=== PATIENT | male | born 1960 | race Caucasian/White ===

== ENCOUNTER 2024-12-31 13:28 | Emergency (ER) | payer OTHER, SELFPAY ==
[2024-12-31 13:43] VITALS: BP 161/76; PULSE 77; RESP 18; O2SAT 97
--- NOTE | 2024-12-31 14:04 | ED_ITS ---
HPI - Head Injury General: Chief complaint: Head Injury Stated complaint: fell out of truck bed, head lac Time Seen by Provider: 12/31/24 14:04 Source: patient Mode of arrival: ambulatory Limitations: no limitations History of Present Illness: Patient is a very pleasant 64-year-old male presents to ED today after he fell out of the back of a truck bed. Patient states he fell backwards and struck the posterior aspect of his scalp. No LOC. He is not on anticoagulation. He does not complain of a severe headache. He is not having any neck pain. He does complain of some pain near the left side of his low back that he feels more so with ambulation. He is not complaining of any chest or abdominal pain. He has been ambulatory without difficulty or assistance since the fall. MD Complaint: head injury Onset (ago): hour(s) Mechanism of Injury: fall Place: outdoors Loss of Consciousness: no Severity: mild Radiation: none Other Injuries: none Associated symptoms: Deny neck pain or syncope Related Data Previous Rx's ?Medication ?Instructions ?Recorded methocarbamol 750 mg tablet 750 mg PO Q6H #20 tabs Allergies Allergy/AdvReac Type Severity Reaction Status Date / Time No Known Allergies Allergy Verified 12/31/24 13:48 Review of Systems Eyes: Denies: change in vision, blurry vision, photophobia, eye discharge, floaters or seeing flashes ENMT: Denies: throat pain, odynophagia, ear or mastoid pain, ear discharge, nasal discharge, epistaxis or sinus pain Card: Denies: chest pain, palpitations, lightheadedness, syncope or pre- syncope Resp: Denies: dyspnea or pain on inspiration GI: Denies: abdominal pain : Denies: flank pain or hematuria Musc: Reports: back pain; Denies: neck pain, extremity pain or joint pain Skin/Breast: Reports: other (scalp laceration) Neuro: Denies: headache(s), numbness in extremities, weakness in extremities, sensory changes or dizziness Physical Exam Const: COMMON NORMALS: no acute distress, average body habitus, patient oriented x3, no limitations, healthy appearing, alert and well nourished GENERAL APPEARANCE: cooperative ORIENTATION/CONSCIOUSNESS: Yes awake, Yes oriented to person, Yes oriented to place and Yes oriented to time HENMT: COMMON NORMALS: normocephalic HEAD & SCALP: normocephalic and laceration (posterior scalp-1cm) FACE & SINUS: normal facial exam Eye: GENERAL EYE: appearance normal, both eyes and all related structures Neck/C-Spine: COMMON NORMALS: full ROM CERVICAL SPINE: Yes cervical ROM normal, No Cervical spine tenderness and No Paracervical muscle tenderness Chest: COMMONS NORMALS: normal inspection of the chest and normal palpation of entire chest wall Resp: COMMON NORMALS: normal respiratory effort and clear to auscultation bilaterally AUSCULTATION: clear to auscultation bilaterally Cardio: COMMON NORMALS: regular rate and regular rhythm RATE: regular rate RHYTHM: regular rhythm Back/Pelvis: COMMON NORMALS: thoracic and lumbar spine normal to inspection, thoraco-lumbar ROM normal and straight leg raise negative bilaterally LUMBAR SPINE/LOWER BACK: Yes lumbar spinal tenderness (mid lumbar) and Yes paraspinal muscle tenderness Lumbar paraspinal muscle tenderness: left PELVIS: Yes but tocks normal SACRUM: no tenderness COCCYX: no tenderness Extremity: COMMON NORMALS: normal to inspection and full ROM Neuro: BEBETO COMA SCALE: document GCS findings [place] coma scale eye opening: Spontaneous [place] coma scale verbal response: Orientated [place] coma scale motor response: Obey commands [place] coma scale total score: 15 COMMON NORMALS: patient oriented x3, moves all extremities, no focal motor deficits, no sensory deficits noted and gait normal SENSORIUM/ORIENTATION: Yes alert, Yes oriented to person, Yes oriented to place and Yes oriented to time Skin: TRAUMA: laceration (scalp) Procedures Laceration Laceration 1: Site: scalp Size (cm): 1.0 Description: linear Depth: simple, single layer Pre-repair: wound explored and irrigated extensively Skin layer closed with: vicryl (2) and other (cynthia-2) Size (cm): 4-0 Number of sutures: 2 Technique: simple, interrupted Course Vital Signs: Vital signs: Vital Signs Pulse Rate 77 12/31/24 13:43 Respiratory Rate 18 12/31/24 13:43 Blood Pressure 161/76 12/31/24 13:43 Pulse Oximetry 97 12/31/24 13:43 Oxygen Delivery Me thod Room Air 12/31/24 13:43 MDM - Head Injury Medcial Decision Making Patient is declining imaging of his head, neck, or lower back. He is concerned regarding his high deductible on his insurance plan. Did discuss risks involved in foregoing imaging of his head, neck and spine including missing an intracranial hemorrhage, skull fracture, vertebral fracture or injury that could result in permanent neurologic damage. Patient seems to understand these risks. He is requesting a prescription for a muscle relaxer which will be provided. He was given signs and symptoms that should prompt a return emergency visit to which he voiced understanding. Scalp laceration was copiously irrigated and repaired as documented. Wound care/infection precautions discussed. Differential Diagnosis Likely concussion without loss of consciousness, epidural hematoma, closed head injury, subarachnoid hematoma and subdural hematoma Medical Records I reviewed the patient's medical records. No radiology studies performed this visit (pt declined imaging) Discharge Plan Discharge Patient Disposition: Home Clinical Impression: Closed head injury Qualifiers: Encounter type: initial encounter Qualified Code(s): S09.90XA - Unspecified injury of head, initial encounter Injury of lower back Qualifiers: Encounter type: initial encounter Qualified Code(s): S39.92XA - Unspecified injury of lower back, initial encounter Laceration of scalp Qualifiers: Encounter type: initial encounter Qualified Code(s): S01.01XA - Laceration without foreign body of scalp, initial encounter Condition: Stable Prescriptions: New methocarbamol 750 mg tablet 750 mg PO Q6H Qty: 20 0RF Discharge Orders: Discharge ED (Routine); Ordered 12/31/24 Ordered By: Janeth Viera Referrals: Lorenzo Austin MD [Primary Care Provider, [facility]] Patient Instructions: Head Injury (DC), Patient Portal & Nancy Instructions Activity Restrictions/Additional Instructions: As we discussed, you have declined any form of imaging today including imaging of your head, neck, and lower back. We have discussed risks of this including intracranial hemorrhage (brain bleed) and/or skull fracture which could be life threatening. We discussed other risks including cervical injury or significant injury to your back that could cause paralysis or long-term neurologic damage. You have indicated that you accept these risks. We did discuss following up with your primary care provider and returning to the emergency department for onset of severe headache, repetitive episodes of vomiting, altered mental status, worsening back or neck pain, numbness/tingling/loss of sensation to your arms or legs, trouble walking, or any other concerns related. Print Language: Belarusian Coding Level of Care Code ED Net Mobile Developer for [employer]
--- OUTSIDE RECORDS SUMMARY | 2024-12-31 14:22 | XMS_ITS | Encounter Summary ---
Author Organization [facility] Address [address] [place] [address] Care Team Providers Care Slip Box Changer Name Role Phone Lorenzo Austin MD Primary Care Provider [phone] Encounter Details Date Type Department Care Team (Late Contact Info) Description 04/09/2024 Results Follow-Up [facility] [address] [place] [id number] Lorenzo Austin MD [address] [place] [address] PSA, ENDOSCOPY, COLON, SCREENING Social History Tobacco Use Types Packs/Day Years Used Date Smoking Tobacco: Never Smokeless Tobacco: Never Alcohol Use Standard Drinks/Week Comments No 0 (1 standard drink = 0.6 oz pur e alcohol) Sex and Gender Information Value Date Recorded Sex Assigned at Male 01/02/2023 6:22 PM CDT Legal Sex Male 3:50 PM SECOND OFFICER Gender Identity Male 01/02/2023 6:22 PM CDT Sexual Orientation Not on file documented as of this encounter Plan of Treatment Upcoming Encounters Date Type Department Care Team (Late st Contact Info) Description 01/13/2025 10:30 AM CDT Office Visit [facility] [address] [place] [address] Lorenzo Austin MD [address] [place] [address] 03/03/2025 9:20 AM SECOND OFFICER Office Visit [facility] [place] [address] [place] [address] Halie William PA [address] [place] [address] documented as of this encounter Visit Diagnoses Not on filedocumented in this encounter Care Teams Slip Box Changer Relationship Specialty Start Date End Date Lorenzo Austin MD [address] [place] [id number] PCP - General Family Practice 06/12/20 documented as of this encounter
--- OUTSIDE RECORDS SUMMARY | 2024-12-31 14:22 | XMS_ITS | Encounter Summary ---
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 Social History Tobacco Use Types Packs/Day Years Used Date Smoking Tobacco: Never Assessed Sex and Gender Information Value Date Recorded Sex Assigned at Not on file 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 Gender Identity Not on file Sexual Orientation Not on file documented as of this encounter Plan of Treatment Not on file documented as of this encounter Visit Diagnoses Diagnosis Type II or unspecified type diabetes mellitus without mention of complication, not stated as uncontrolled- Primary Dietary surveil/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
--- OUTSIDE RECORDS SUMMARY | 2024-12-31 14:22 | XMS_ITS | Clinical Summary ---
Author Organization [facility] Address [address] [place] [address] Care Team Providers Care Geochemical Laboratory Technician Name Role Phone Lorenzo Austin MD Primary Care Provider [phone] Allergies No known active allergies Medications sildenafiL (VIAGRA) 100 mg tablet Take 1 Tablet (100 mg) by mouth 1 time daily as needed for Erectile Dysfunction. 30 Tablet 5 Active Additional Information Patient not taking.Reported on 11/03/2024 aspirin (TAMIKO CHEWABLE) 81 mg Tablet, Chewable Active timoloL maleate (TIMOPTIC) 0.5% solution Administer 1 Drop in left eye daily in the morning. 5 mL 3 Active tadalafiL (CIALIS) 20 mg tablet Take 1 Tablet (20 mg) by mouth 1 time daily as needed for Erectile Dysfunction. 30 Tablet 5 Active glipiZIDE (GLUCOTROL) 10 mg tablet take 1 tablet twice a day 180 Tablet 3 024 Active lisinopriL (PRINIVIL) 10 mg tablet TAKE 1 TABLET DAILY 90 Tablet 3 024 Active verapamiL (VERELAN) 180 mg Sustained Release 24 hour capsule TAKE 1 CAPSULE DAILY 90 Capsule 3 Active methylPREDNISol one (MEDROL DOSPACK) 4 mg Tablets, Dose Pack As directed 21 Tablet Active Additional Information Patient not taking.Reported on 11/03/2024 erythromycin (ILOTYCIN) 5 mg/gram (0.5 %) ointment Administer 0.25 Inches in both eyes daily at bedtime. 10 Gram 1 Active Additional Information Patient not taking.Reported on 11/03/2024 HYDROcodone-talia taminophen (NORCO) 5-325 mg tabletIndicatio ns:Sciatica of right side Take 1 Tablet by mouth every 6 hours as needed for Pain, Moderate. Max Daily Amount: 4 Tablets 20 Tablet Active Additional Information Patient not taking.Reported on 11/03/2024 tiZANidine (ZANAFLEX) 2 mg Tablet Take 1 Tablet (2 mg) by mouth every 6 hours as needed for Spasm. 20 Tablet 1 Active Additional Information Patient not taking.Reported on 11/03/2024 traZODone (DESYREL) 100 mg tablet TAKE 1 TABLET DAILY AT BEDTIME 90 Tablet 3 Active Insulin Goff, Disposable, (BD Ultra-Fine Mini Pen Needle) 31 gauge x 3/16 Needle Inject insulin once a day 100 Each 3 Active atorvastatin (LIPITOR) 10 mg tablet TAKE 1 TABLET DAILY 90 Tablet 3 Active semaglutide (Ozempic) 0.25 mg or 0.5 mg (2 mg/3 mL) Pen Injector Inject 0.5 mg by subcutaneous injection every 7 days. 9 mL 3 Active Additional Information Patient not taking.Reported on 11/03/2024 HYDROcodone-talia taminophen (NORCO) 5-325 mg tabletIndicatio ns:Herpes zoster without complication Take 1 Tablet by mouth every 4 hours as needed for Pain, Moderate. Max Daily Amount: 6 Tablets 20 Tablet Active empagliflozin (Jardiance) 25 mg tablet Take 1 Tablet (25 mg) by mouth daily in the morning. 90 Tablet 3 Active gabapentin (NEURONTIN) 300 mg capsule Take 1 Capsule (300 mg) by mouth 3 times daily. 90 Capsule 1 Active Lantus Solostar U-100 Insulin 100 unit/mL (3 mL) solution for injection INJECT 30 UNITS SUBCUTANEOUSLY ONCE DAILY AT BEDTIME 15 mL Active insulin glargine (Lantus Solostar U-100 Insulin) 100 unit/mL pen syringe Inject 50 Units by subcutaneous injection daily at bedtime. 15 mL 3 025 2024 Discontinued Active Problems Problem Noted Date Diagnosed Date Back pain with sciatica 03/29/2024 Obesity (BMI 30.0-34.9) 01/06/2023 Chronic left shoulder pain 01/06/2023 Hyperlipidemia 01/06/2023 HTN (hypertension), benign 01/06/2023 DM (diabetes mellitus), type 2 02/23/2021 Vision impairment 06/12/2020 Overview (07/17/2020): Right side Primary open angle glaucoma of right eye, mild s tage 04/03/2015 Glaucoma shunt device of right eye 04/03/2015 Borderline glaucoma with ocular hypertension, le ft eye 02/19/2013 Senile nuclear sclerosis, left eye 02/19/2013 Cystoid macular edema - right eye 01/08/2013 Pseudophakia of right eye 12/24/2012 Resolved Problems Problem Noted Date Diagnosed Date Resolved Date Primary open-angle glaucoma( 365.11), right eye 02/19/2013 04/03/2015 Primary open-angle glaucoma(365.11) 12/24/2012 02/19/2013 Encounters Date Type Department Care Team Description 12/03/2024 External Device Data STL ABSTRACTION Provider, Abstract 12/03/2024 External Device Data STL ABSTRACTION Provider, Abstract 11/30/2024 Refill [facility] Endocrinology [facility] [address] [place] [address] Paul Bentley MD 11/26/2024 External Device Data STL ABSTRACTION Provider, Abstract 11/22/[address] [facility] [address] [place] [address] Paul Bentley MD Medication Assistance 11/20/[address] [facility] [address] [place] [address] Bill Cuenca CMA 11/06/2024 External Device Data STL ABSTRACTION Provider, Abstract 11/03/2024 10:00 AM CDT Office Visit [facility] [phone] [facility] [address] [place] [address] Hany Kan FNP Herpes zoster without complication (Primary Dx) 10/21/[address] [facility] [address] [facility] [address] [place] [address] Paul Bentley MD Medication Authorization 10/14/2024 10:30 AM CDT Office Visit [place] [id number] [facility] [address] [place] [address] Paul Bentley MD Uncontrolled type 2 diabetes mellitus with hyperglycemia, without long-term current use of insulin ([facility]) (Primary Dx); Dyslipidemia; Class 1 obesity with body mass index (BMI) of 32.0 to 32.9 in adult, unspecified obesity type, unspecified whether serious comorbidity present; Diabetic polyneuropathy associated with type 2 diabetes mellitus ([facility]) 10/03/2024 Results Follow-Up [place] [id number] [facility] [address] [place] [address] Paul Bentley MD COMPREHENSIVE METABOLIC PANEL, HEMOGLOBIN A1C, LIPID PANEL 10/02/2024 External Device Data STL ABSTRACTION Provider, Abstract 10/02/2024 External Device Data STL ABSTRACTION Provider, Abstract 10/02/2024 External Device Data STL ABSTRACTION Provider, Abstract from Last 3 Months Immunizations Immunization Administration Dates Next Due (PNEUMOVAX 23)(50 YRS UP) PN EUMOCOCCAL POLYSACCHARIDE (PPV23) 0.5 ML, IM 12/14/2020 (TDVAX)(7 YRS UP) TETANUS AN D DIPHTHERIA TOXOIDS, ADSORBED (2 LF OF TETANUS TOXOID AND 2 LF OF DIPHTHERIA TOXOID), 0.5ML (PF), IM 02/04/2000 (TENIVAC)(7 YRS UP) TETANUS AND DIPHTHERIA TOXOIDS, ADSORBED (5 LF OF TETANUS TOXOID AND 2 LF OF DIPHTHERIA TOXOID), 0.5ML (PF), IM 01/05/2022 INFLUENZA VACCINE QUADRIVALENT 6 MOS UP PF IM ,01/05/2022 INFLUENZA VACCINE TRIVALENT SPLIT VIRUS, (6 MOS UP), 0.5ML (PF), IM 01/12/2024 Family History Medical History Relation Name Comments Diabetes Brother Diabetes Father Diabetes Maternal Grandfather Hypertension Maternal Grandfather Diabetes Paternal Grandmother Cancer Sister Colon Cancer Neg Hx Glaucoma Neg Hx Macular Degen Neg Hx Relation Name Status Comments Brother Father Maternal Grandfather Paternal Grandmother Sister Social History Tobacco Use Types Packs/Day Years Used Date Smoking Tobacco: Never Smokeless Tobacco: Never Tobacco Cessation:Counseling Given: Not Answered Alcohol Use Standard Drinks/Week Comments No 0 (1 standard drink = 0.6 oz pur e alcohol) Sex and Gender Information Value Date Recorded Sex Assigned at Male 01/02/2023 6:22 PM CDT Legal Sex Male 3:50 PM STUDIO MODEL Gender Identity Male 01/02/2023 6:22 PM CDT Sexual Orientation Not on file Last Filed Vital Signs Vital Sign Reading Time Taken Comments Blood Pressure 118/78 11/03/2024 10:03 AM CDT Pulse 74 11/03/2024 10:03 AM CDT Temperature 36.8 C (98.3 F) 11/03/2024 10:03 AM CDT Respiratory Rate 16 03/29/2024 9:55 AM STUDIO MODEL Oxygen Saturation 94% 11/03/2024 10:03 AM CDT Inhaled Oxygen Concentration - - Weight 106.4 kg (234 lb 8 oz) 11/03/2024 10:03 A M CDT Height 177.8 cm (5' 10 ) 10/14/2024 10:15 AM CDT Body Mass Index 33.65 10/14/2024 10:15 AM CDT Plan of Treatment Upcoming Encounters Date Type Department Care Team (Late st Contact Info) Description 01/13/2025 10:30 AM CDT Office Visit [facility] [phone] [place] [address] Lorenzo Austin MD [address] [place] [address] 03/03/2025 9:20 AM STUDIO MODEL Office Visit [facility] Endocrinology [facility] [address] [place] [address] Halie William PA [address] [place] [address] Health Maintenance Due Date Last Done Comments FIT/FOBT Q 1 year 2006 Flex Sig/CT Colonography Q 5 years 2006 ZOSTER VACCINE (1 of 2) 2011 RSV VACCINE (60+ or ) (1 - Risk 60-74 years 1-dose series) 2021 DTAP/TDAP/TD VACCINES (1 - Tdap) 01/06/2022 01/06/20 22, 02/04/2000 DIABETES MICROALBUMIN ANNUAL SCREEN 07/30/2023 07/29/2022, 01/28/2022, 01/28/2021, Additional history exists FIT-DNA Q 3 years 12/30/2023 12/29/2020 INFLUENZA VACCINE (#1) 2024 4, 01/06/2023, 01/05/2022 DIABETES: A1C (Auto Order) 01/02/202510/02, 04/08/2024, 10/30/2023, Additional history exists DIABETES ANNUAL FOOT EXAM 01/11/20252023, 01/06/2023, 01/05/2022, Additional history exists DIABETES ANNUAL RETINAL EXAM 03/29/202512/2024, 03/29/2024, 08/04/2023, Additional history exists DIABETES HBA1C Q 6 MONTHS 04/04/20252024, 04/08/2024, 10/30/2023, Additional history exists LDL CHOLESTEROL ANNUAL 10/02/2025 5, 04/08/2024, 07/31/2023, Additional history exists COLORECTAL SCREENING 05/13/2034 05/13/2024 Colorectal Cancer Screening 05/13/2034 Medical Devices Implanted Type Area Tub Rider Device Identifier Shelf Expiration Date Model / Serial / Lot Cornea Allgrft 1/2 Glycerin Prsrv 932 - [id number] Implanted:Qty: 1 on 02/11/2013 by Al Lacey MD Eye Right: Eye [place] [employer] 12/08/2016 932 / [id number] / Valve Maint Ahmed Glaucoma S-2 - [id number] Implanted:Qty: 1 on 02/11/2013 by Al Lacey MD Eye Right: Eye [id number] 11/11/2017 S-2 / [id number] / Procedures Procedure Name Priority Date/Time Associated Diagnosis Comments LIPID PANEL Routine 10/02/2024 9:12 AM CDT Uncontrolled type 2 diabetes mellitus with hyperglycemia, without long-term current use of insulin (CMS/HCC) Dyslipidemia Class 1 obesity with body mass index (BMI) of 32.0 to 32.9 in adult, unspecified obesity type, unspecified whether serious comorbidity present Diabetic polyneuropathy associated with type 2 diabetes mellitus (CMS/HCC) HEMOGLOBIN A1C Routine 10/02/2024 9:12 AM CDT Uncontrolled type 2 diabetes mellitus with hyperglycemia, without long-term current use of insulin (CMS/HCC) Dyslipidemia Class 1 obesity with body mass index (BMI) of 32.0 to 32.9 in adult, unspecified obesity type, unspecified whether serious comorbidity present Diabetic polyneuropathy associated with type 2 diabetes mellitus (CMS/HCC) COMPREHENSIVE METABOLIC PANEL Routine 10/02/2024 9:12 AM CDT Uncontrolled type 2 diabetes mellitus with hyperglycemia, without long-term current use of insulin (CMS/HCC) Dyslipidemia Class 1 obesity with body mass index (BMI) of 32.0 to 32.9 in adult, unspecified obesity type, unspecified whether serious comorbidity present Diabetic polyneuropathy associated with type 2 diabetes mellitus (CMS/HCC) ENDOSCOPY, COLON, SCREENING Routine 05/13/2024 Encounter for colorectal cancer screening MICROALBUMIN/CREATINI NE RATIO, RANDOM UR Routine 07/29/2022 10:08 AM CDT Uncontrolled type 2 diabetes mellitus with hyperglycemia, without long-term current use of insulin (CMS/HCC) Dyslipidemia COLON CANCER SCREEN, STOOL DNA Routine 12/29/2020 11:30 AM CDT Screening for colon cancer FLUORESCEIN ANGIOGRAPHY RIGHT Routine 02/06/2013 12:10 PM STUDIO MODEL from Last 3 Months or Most Recently Relevant to Health Maintenance Results * (ABNORMAL) HEMOGLOBIN A1C (10/02/2024 9:12 AM CDT) HEMOGLOBIN A1C 9.9(H) <5.7 % [facility] Comment: For someone without known diabetes, a hemoglobin A1c value of 6.5% or greater indicates that they may have diabetes and this should be confirmed with a follow-up test. For someone with known diabetes, a value <7% indicates that their diabetes is well controlled and a value greater than or equal to 7% indicates suboptimal control. A1c targets should be individualized based on duration of diabetes, age, comorbid conditions, and other considerations. Currently, no consensus exists regarding use of hemoglobin A1c for diagnosis of diabetes for children. ESTIMATED AVERAGE GLUCOSE (MG/DL) 237 mg/dL [facility] ESTIMATED AVERAGE GLUCOSE (MMOL/L) 13.2 mmol/L [facility] Comment: FASTING:YES FASTING: YES Test Performed at: [facility] [address] [facility] [place] [address] Johanna Vogt MD Blood 10/02/2024 9:12 AM CDT 10/02/2024 9:12 AM CDT us Paul Bentley MD CHEMISTRY ORDERABLES Final Res ult [facility] [phone] [facility] [address] [place] [address] [place] [address] * LIPID PANEL (10/02/2024 9:12 AM CDT) CHOLESTEROL 152 <200 mg/dL [facility] HDL 41 > OR = 40 mg/dL [facility] TRIGLYCERIDE 126 <150 mg/dL [facility] LDL CALCULATED 88 mg/dL (calc) [facility] Comment: Reference range: <100 Desirable range <100 mg/dL for primary prevention; <70 mg/dL for patients with CHD or diabetic patients with > or = 2 CHD risk factors. LDL-C is now calculated using the Zane-Karen calculation, which is a validated novel method providing better accuracy than the Friedewald equation in the estimation of LDL-C. Zane SS et al. PIERO. 2013;310(19): 9073-0340 (http://education.[facility].com/faq/UJF680) CHOL/HDL RATIO 3.7 <5.0 (calc) [facility] NON-HDL CHOLESTEROL 111 <130 mg/dL (calc) [facility] Comment: For patients with diabetes plus 1 major ASCVD risk factor, treating to a non-HDL-C goal of <100 mg/dL (LDL-C of <70 mg/dL) is considered a therapeutic option. Test Performed at: [facility] [address] [place] [phone] Johanna Vogt MD Blood 10/02/2024 9:12 AM CDT 10/02/2024 9:12 AM CDT Paul Bentley MD CHEMISTRY ORDERABLES Final Res ult [facility] [phone] [facility] [address] * (ABNORMAL) COMPREHENSIVE METABOLIC PANEL (10/02/2024 9:12 AM CDT) GLUCOSE 228(H) 65 - 99 mg/dL [facility] Comment: Fasting reference interval For someone without known diabetes, a glucose value >125 mg/dL indicates that they may have diabetes and this should be confirmed with a follow-up test. BUN 18 7 - 25 mg/dL [facility] CREATININE 1.03 0.70 - 1.35 mg/dL [facility] GFR 82 > OR = 60 mL/min/1. 73m2 [facility] BUN/CREAT RATIO SEE NOTE: 6 - 22 (calc) [facility] Comment: Not Reported: BUN and Creatinine are within reference range. SODIUM 134(L) 135 - 146 mmol/L [facility] POTASSIUM 4.5 3.5 - 5.3 mmol/L [facility] CHLORIDE 102 98 - 110 mmol/L [facility] CO2 26 20 - 32 mmol/L [facility] CALCIUM 9.6 8.6 - 10.3 mg/dL [facility] TOTAL PROTEIN 7.1 6.1 - 8.1 g/dL [facility] ALBUMIN 4.3 3.6 - 5.1 g/dL [facility] GLOBULIN 2.8 1.9 - 3.7 g/dL (calc) [facility] ALBUMIN/GLOBULIN RATIO 1.5 1.0 - 2.5 (calc) [facility] BILIRUBIN TOTAL 0.5 0.2 - 1.2 mg/dL [facility] ALKALINE PHOSPHATASE 38 35 - 144 U/L [facility] AST 13 10 - 35 U/L [facility] ALT 14 9 - 46 U/L [facility] Comment: Test Performed at: [facility] [address] [place] [address] Johanna Vogt MD Blood 10/02/2024 9:12 AM CDT 10/02/2024 9:12 AM CDT us Paul Bentley MD CHEMISTRY ORDERABLES Final Res ult [facility] [phone] [facility] [address] * ENDOSCOPY, COLON, SCREENING (05/13/2024) us Lorenzo Austin MD GI PROCEDURE ORDERABLES Final Re sult * (ABNORMAL) MICROALBUMIN/CREATININE RATIO, RANDOM UR (07/29/2022 10:08 AM CDT) Creatinine, Urine 115 20 - 320 mg/dL [facility] MICROALBUMIN, URINE 4.9 See Note: mg/dL [facility] Comment: Reference Range: Reference Range Not established MICROALBUMIN/CREAT RATIO, UR 43(H) <30 mcg/mg creat [facility] Comment: The ADA defines abnormalities in albumin excretion as follows: Albuminuria Category Result (mcg/mg creatinine) Normal to Mildly increased <30 Moderately increased 30-299 Severely increased > OR = 300 The ADA recommends that at least two of three specimens collected within a 3-6 month period be abnormal before considering a patient to be within a diagnostic category. FASTING:YES FASTING: YES Test Performed at: [facility] [address] [place] [address] Johanna Vogt MD Urine URINE SPECIMEN OBTAINED BY CLEAN CATCH PROCEDURE / Unknown 07/29/2022 10:08 AM CDT 07/29/2022 10:09 AM CDT Paul Bentley MD URINE ORDERABLES Final Result [facility] [phone] [facility] [address] [facility] [place] [address] * COLON CANCER SCREEN, STOOL DNA (12/29/2020 11:30 AM CDT) COLOGUARD RESULT Negative Negative [facility] Comment: NEGATIVE TEST RESULT. A negative Cologuard result indicates a low likelihood that a colorectal cancer (CRC) or advanced adenoma (adenomatous polyps with more advanced pre-malignant features) is present. The chance that a person with a negative Cologuard test has a colorectal cancer is less than 1 in 1500 (negative predictive value >99.9%) or has an advanced adenoma is less than 5.3% (negative predictive value 94.7%). These data are based on a prospective cross-sectional study of 10,000 individuals at average risk for colorectal cancer who were screened with both Cologuard and colonoscopy. (Major Acosta et al, N Engl J Med 2014;370(14):1051-9005) The normal value (reference range) for this assay is negative. COLOGUARD RE-SCREENING RECOMMENDATION: Periodic colorectal cancer screening is an important part of preventive healthcare for asymptomatic individuals at average risk for colorectal cancer. Following a negative Cologuard result, the [place] [employer] and U.S. Multi-Society Task Force screening guidelines recommend a Cologuard re-screening interval of 3 years. References: [place] [employer] Guideline for Colorectal Cancer Screening: https://www.cancer.org/cancer/zoxhy-xyarcs-qdqhvt/alxkjohso-knhbmozrs-oiseicp/ac s-rec ommendations.html.; Anatoliy DK, Martin CR, Jenna AllenK, Colorectal Cancer Screening: Recommendations for Physicians and Patients from the U.S. Multi-Society Task Force on Colorectal Cancer Screening , Am J Gastroenterology 2017; 112:1075-6051. TEST DESCRIPTION: Composite algorithmic analysis of stool DNA-biomarkers with hemoglobin immunoassay. Quantitative values of individual biomarkers are not reportable and are not associated with individual biomarker result reference ranges. Cologuard is intended for colorectal cancer screening of adults of either sex, 45 years or older, who are at average-risk for colorectal cancer (CRC). Cologuard has been approved for use by the U.S. FDA. The performance of Cologuard was established in a cross sectional study of average-risk adults aged 50-84. Cologuard performance in patients ages 45 to 49 years was estimated by sub-group analysis of near-age groups. Colonoscopies performed for a positive result may find as the most clinically significant lesion: colorectal cancer [4.0%], advanced adenoma (including sessile serrated polyps greater than or equal to 1cm diameter) [20%] or non- advanced adenoma [31%]; or no colorectal neoplasia [45%]. These estimates are derived from a prospective cross-sectional screening study of 10,000 individuals at average risk for colorectal cancer who were screened with both Cologuard and colonoscopy. (Major Altamirano al, N Engl J Med 2014;370(14):1758-1627.) Cologuard may produce a false negative or false positive result (no colorectal cancer or precancerous polyp present at colonoscopy follow up). A negative Cologuard test result does not guarantee the absence of CRC or advanced adenoma (pre-cancer). The current Cologuard screening interval is every 3 years. ([place] [employer] and U.S. Multi-Society Task Force). Cologuard performance data in a 10,000 patient pivotal study using colonoscopy as the reference method can be accessed at the following location: www.[employer].Earthmill/results. Additional description of the Cologuard test process, warnings and precautions can be found at www.[facility].com. Stool STOOL SPECIMEN / Unknown 12/29/2020 11:30 AM CDT 12/30/2020 10:08 PM CDT Lorenzo Austin MD BODY FLUIDS AND STOOLS Final Res ult [facility] CLIA # [id number] [address], [address] [place] [address] * FLUORESCEIN ANGIOGRAPHY RIGHT (02/06/2013 12:10 PM STUDIO MODEL) 02/06/2013 12:1 0 PM STUDIO MODEL Narrative [facility] - 02/06/2013 9:09 AM STUDIO MODEL Eric Alexandra MD 02/06/2013 12:10 PM Fundus Photo Indication for procedure: To evaluate and document fundus findings. Findings: Findings consistent with clinical findings, both eyes. Impression: Right eye: cystoid macular edema Fluorescein Angiogram Report Indication for the procedure: To evaluate ocular circulation, aid with diagnosis and management plans. Findings: Early phase was obtained in the right eye. It showed normal arterial filling time. The A-V transient time is normal. It showed minimal early hyperfluorescence with mild defused late leakage in the macular area, right eye. No apparent sign of active subretinal neovascular membrane. Optic disc in the right eye showed minimal leakage in the late phase than the left. Diagnosis: cystoid macular edema, right eye Optical Coherent Topography Report Indication: To evaluate macular degeneration. Right Eye: There is choroidal folds with a few small plaque with RPE / choroid layer irregularity and thickening. There is no macular edema. Small pigmentary epithelial detachment, versus subretinal fluid. Left Eye: macular degeneration. There is a plaque with RPE / choroid layer irregularity and thickening. There is no macular edema or subretinal fluid. Diagnosis: Age related macular degeneration, both eyes Procedure Note Eric Alexandra MD - 02/06/2013 9:09 AM CST Procedures by Eric Alexandra MD at 02/06/2013 9:09 AM Author: Eric Alexandra MD Service: -- Author Type: Physician Filed: 02/06/2013 12:10 PM Encounter Date: 02/06/2013 Status: Signed Instrument Lens Generator: Eric Alexandra MD (Physician) Procedure Orders 1. FLUORESCEIN ANGIOGRAPHY RIGHT [[id number]] ordered by Eric Alexandra MD at 02/06/13 0909 Pre-procedure Diagnoses 1. Cystoid macular degeneration of retina [362.53] Procedures 1. DC FLUORESCEIN ANGIOGRAPHY [79447 (CPT )] 2. DC FUNDAL PHOTOGRAPHY [90329 (CPT )] Fundus Photo Indication for procedure: To evaluate and document fundus findings. Findings: Findings consistent with clinical findings, both eyes. Impression: Right eye: cystoid macular edema Fluorescein Angiogram Report Indication for the procedure: To evaluate ocular circulation, aid withdiagnosis and management plans. Findings: Early phase was obtained in the right eye. It showed normal arterialfilling time. The A-V transient time is normal. It showed minimal early hyperfluorescence with mild defused late leakagein the macular area, right eye. No apparent sign of active subretinalneovascular membrane. Optic disc in the right eye showed minimal leakagein the late phase than the left. Diagnosis: cystoid macular edema, right eye Optical Coherent Topography Report Indication: To evaluate macular degeneration. Right Eye: There is choroidal folds with a few small plaque with RPE /choroid layer irregularity and thickening. There is no macular edema.Small pigmentary epithelial detachment, versus subretinal fluid. Left Eye: macular degeneration. There is a plaque with RPE / choroidlayer irregularity and thickening. There is no macular edema or subretinalfluid. Diagnosis: Age related macular degeneration, both eyes X Jessica Alexandra MD PROCEDURE/MINOR SURGICAL ORDERA BLES Final Result [facility] from Last 3 Months or Most Recently Relevant to Health Maintenance Insurance RX [employer] RX Member Subscriber Plan / Payer (Ef fective 2022-Present) Name:Melchor Cabrales Relation to Subscriber:Self Name:Melchor Cabrales Subscriber ID:Not on file Payer ID:Not on file Group ID:[id number] Type:RX Commercial Address: [address] [facility] Care Teams Geochemical Laboratory Technician Relationship Specialty Start Date End Date Lorenzo Austin MD [address] [phone] PCP - General Family Practice 06/12/20
--- OUTSIDE RECORDS SUMMARY | 2024-12-31 14:22 | XMS_ITS | Clinical Summary ---
Author Organization [facility] Address [address] [place] [address] Care Team Providers Care News Clipping Cutter Name Role Phone Lorenzo Austin MD Primary Care Provider [phone] Allergies No known active allergies Medications atorvastatin (LIPITOR) 10 mg Oral tablet Take 1 Tab by mouth daily. Active glipiZIDE (GLUCOTROL) 10 mg Oral tablet Take 1 Tab by mouth 2 times daily. Active lisinopril (PRINIVIL) 10 mg Oral tablet Take 1 Tab by mouth daily. Active verapamil sr 24 hour (COVERA-HS) 180 mg Oral tablet Take 1 Tab by mouth daily. Active VIT C/CORY AC/LUT/COPPER/Z NOX (PRESERVISION LUTEIN ORAL) Take 2 Tabs by mouth daily. Active sildenafiL (VIAGRA) 100 mg tablet Take 1 Tablet (100 mg) by mouth 1 time daily as needed for Erectile Dysfunction. 30 Tablet 5 1 Active traZODone (DESYREL) 100 mg tablet Take 1 Tablet (100 mg) by mouth daily at bedtime. 90 Tablet 3 1 Active semaglutide (Ozempic) 1 mg/dose (4 mg/3 mL) Pen Injector Inject 1 mg by subcutaneous injection every 7 days. 9 mL 3 1 Active empagliflozin (JARDIANCE) 25 mg tablet Take 1 Tablet (25 mg) by mouth daily in the morning. 90 Tablet 3 1 Active Active Problems Problem Noted Date Diagnosed Date Vision impairment 06/12/2020 Overview (06/12/2020): Right side Primary open angle glaucoma of [...] 02/19/2013 04/03/2015 Primary open-angle glaucoma(365.11) 12/24/2012 02/19/2013 Immunizations Immunization Administration Dates Next Due (TDVAX)(7 YRS UP) TETANUS AN D DIPHTHERIA TOXOIDS, ADSORBED (2 LF OF TETANUS TOXOID AND 2 LF OF DIPHTHERIA TOXOID), 0.5ML (PF), IM 02/04/2000 Family History Medical History Relation Name Comments Diabetes Brother Diabetes Father Diabetes Maternal Grandfather Hypertension Maternal Grandfather Diabetes Paternal Grandmother Cancer Sister Relation Name Status Comments Brother Father Maternal Grandfather Paternal Grandmother Sister Social History Tobacco Use Types Packs/Day Years Used Date Smoking Tobacco: Never Smokeless Tobacco: Never Alcohol Use Standard Drinks/Week Comments No 0 (1 standard drink = 0.6 oz pur e alcohol) Sex and Gender Information Value Date Recorded Sex Assigned at Not on file 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 Gender Identity Not on file Sexual Orientation Not on file Occupation Industry Job Start Date Job End Date Not on file Not on file Not on file Not on file Last Filed Vital Signs Vital Sign Reading Time Taken Comments Blood Pressure 108/82 09/04/2020 11:00 AM CDT Pulse 80 09/04/2020 11:00 AM CDT Temperature 36.4 C (97.5 F) 06/12/2020 10:43 AM CDT Respiratory Rate 16 06/12/2020 10:43 AM CDT Oxygen Saturation 98% 06/12/2020 10:43 AM CDT Inhaled Oxygen Concentration - - Weight 103.4 kg (228 lb) 09/04/2020 11:00 AM CDT Height 179.1 cm (5' 10.5 ) 09/04/2020 11:00 AM C DT Body Mass Index 32.25 09/04/2020 11:00 AM CDT Plan of Treatment Health Maintenance Due Date Last Done Comments DIABETES ANNUAL FOOT EXAM 1979 DTAP/TDAP/TD VACCINES (1 - Tdap) 02/05/2000 02/04/20 00 COLORECTAL SCREENING 2006 Colorectal Cancer Screening 2006 FIT-DNA Q 3 years 2006 FIT/FOBT Q 1 year 2006 Flex Sig/CT Colonography Q 5 years 2006 ZOSTER VACCINE (1 of 2) 2011 DIABETES ANNUAL RETINAL EXAM 10/16/2019, 10/15/2018, 10/15/2018, Additional history exists DIABETES HBA1C Q 6 MONTHS 12/13/2020 06/12/2020 RSV VACCINE (60+ or ) (1 - Risk 60-74 years 1-dose series) 2021 DIABETES MICROALBUMIN ANNUAL SCREEN 06/12/2021 06/12/2020 LDL CHOLESTEROL ANNUAL 06/12/2021 06/12/2020 Preventative Visit- Commercial 03/20/2024 1 , 01/06/2023, 01/05/2022, Additional history exists INFLUENZA VACCINE (#1) 2024 Medical Devices Implanted Type Area Research Assistant Member Device Identifier Shelf Expiration Date Model / Serial / Lot Valve Maint Ahmed Glaucoma S-2 - [id number] Implanted:Qty: 1 on 02/11/2013 by Al Lacey MD at [facility] Eye Right: Eye [employer] 11/11/2017 S-2 / [id number] / Cornea Allgrft 1/2 Glycerin Prsrv 932 - [id number] Implanted:Qty: 1 on 02/11/2013 by Al Lacey MD at [facility] Eye Right: Eye [facility] 12/08/2016 932 / [id number] / Procedures Procedure Name Priority Date/Time Associated Diagnosis Comments MICROALBUMIN/CREATIN INE RATIO, RANDOM UR Routine 06/12/2020 12:15 PM CDT Encounter for routine adult health examination with abnormal findings LIPID PANEL Routine 06/12/2020 12:09 PM CDT Encounter for routine adult health examination with abnormal findings HEMOGLOBIN A1C Routine 06/12/2020 12:09 PM CDT Encounter for routine adult health examination with abnormal findings MT FUNDUS PHOTOGRAPHY W/INTERPRETATION & REPORT Routine 02/06/2013 12:10 PM DAYLIGHT DRILLER Cystoid macular edema - right eye MT FLUORESCEIN ANGRPH W/MULTIFRAME IMG I&R UNI/BI Routine 02/06/2013 12:10 PM DAYLIGHT DRILLER Cystoid macular edema - right eye from Last 3 Months or Most Recently Relevant to Health Maintenance Results * (ABNORMAL) MICROALBUMIN/CREATININE RATIO, RANDOM UR (06/12/2020 12:15 PM CDT) MICROALBUMIN, URINE 13.1 No Reference Range mg/dL 06/12/2020 1:36 PM CDT [facility] CREATININE, URINE 66.6 40.0 - 278.0 mg/dL 06/12/2020 1:36 PM CDT [facility] Comment:Reference Range vari es with fluid intake and diet. MICROALBUMIN/ CREAT RATIO, UR 196.7(H) <17.0 mg/g 06/12/2020 1:36 PM CDT [facility] Urine URINE SPECIMEN OBTAINED BY CLEAN CATCH PROCEDURE / Unknown Collection / Unknown 06/12/2020 12:15 PM CDT 06/12/2020 12:29 PM CDT Narrative [facility] - 06/12/2020 1:36 PM CDT Condition Microalbumin/Creat ratio Normal Males <17 Normal Females <25 Microalbuminuria Males 17-299 Microalbuminuria Females 25-299 Overt proteinuria >=300 us oLrenzo Austin MD URINE ORDERABLES Final Result [facility] CLIA# [id number] [address] [place] [address] * (ABNORMAL) HEMOGLOBIN A1C (06/12/2020 12:09 PM CDT) HEMOGLOBIN A1C 10.1(H) See Comment % 06/12/2020 12:46 PM CDT [facility] EST. AVG GLUCOSE, A1C 243 mg/dL 06/12/2020 12:46 PM CDT [facility] Blood Venipuncture / Unknown 06/12/2020 12:09 PM CDT 06/12/2020 12:19 PM CDT Narrative [facility] - 06/12/2020 12:46 PM CDT HGB A1C INTERPRETATION NORMAL: <5.7% PRE-DIABETES: 5.7 - 6.4% DIABETES: 6.5% OR GREATER Falsely low A1C measurements can occur when: 1. Anemia and/or hemolytic anemia is present. 2. Hemoglobin variants present. 3. Renal failure. 4. Transfusion of blood product in the last 120 days. We recommend ordering a fructosamine test([id number]) to more accurately assess glycemic status if any of the above conditions are present. Lorenzo Austin MD CHEMISTRY ORDERABLES Final Resul t [facility] CLIA# [id number] [address] [place] [address] * (ABNORMAL) LIPID PANEL (06/12/2020 12:09 PM CDT) CHOLESTEROL 172 <200 mg/dL 06/12/2020 12:46 PM CDT [facility] TRIGLYCERIDE 130 <150 mg/dL 06/12/2020 12:46 PM CDT [facility] HDL 46 40 - 59 mg/dL 06/12/2020 12:46 PM CDT [facility] LDL CALCULATED 100(H) <100 mg/dL 06/12/2020 12:46 PM CDT [facility] NON-HDL CHOLESTEROL 126 <130 mg/dL 06/12/2020 12:46 PM CDT [facility] Blood Venipuncture / Unknown 06/12/2020 12:09 PM CDT 06/12/2020 12:16 PM CDT Narrative [facility] - 06/12/2020 12:46 PM CDT TOTAL CHOLESTEROL mg/dL Desirable <200 Borderline high 200-239 High >=240 TRIGLYCERIDES mg/dL Normal <150 Borderline high 150-199 High 200-499 Very high >=500 HDL CHOLESTEROL mg/dL Low <40 Normal 40-59 Desirable >=60 NON HDL CHOLESTEROL mg/dL Optimal <130 Near Optimal 130-159 Borderline High 160-189 Very High >=190 CALCULATED LDL mg/dL LDL <70, OPTIMAL if have Atherosclerotic cardiovascular disease (ASCVD) or intermediate or higher (>7.5%) 10 year risk of ASCVD including most adults with diabetes. LDL <100, Optimal in adult patients with low (<7.5%) 10 year ASCVD risk LDL 100-160, Suboptimal LDL >160, High LDL >190, Very high ATPIII Guidelines Reference Ranges for Lipid Panels (NCEP/AMA) . us Lorenzo Austin MD CHEMISTRY ORDERABLES Final Resul t [facility] IA# [id number] [address] [place] [address] * MT FLUORESCEIN ANGRPH W/MULTIFRAME IMG I&R UNI/BI, MT FUNDUS PHOTOGRAPHY W/INTERPRETATION &REPORT (02/06/2013 12:10 PM DAYLIGHT DRILLER) [facility] - 02/06/2013 12:10 PM DAYLIGHT DRILLER Eric Alexandra MD 02/06/2013 12:10 PM Fundus [...] Alexandra MD - 02/06/2013 9:09 AM CST Fundus Photo Indication for procedure: To evaluate [...] Diagnosis: Age related macular degeneration, both eyes us X Jessica Alexandra MD PROCEDURE/MINOR SURGICAL ORDERA BLES Final Result [facility] from Last 3 Months or Most Recently Relevant to Health Maintenance Insurance [employer] Advance Directives For more information, please contact: [phone] * Full Code (Latest Code Status on File) Date Activated Date Inactivated Comments 02/11/2013 7:34 AM 02/11/2013 12:04 PM Care Teams News Clipping Cutter Relationship Specialty Start Date End Date Lorenzo Austin MD [address] [address] PCP - General Family Practice 06/12/20
--- OUTSIDE RECORDS SUMMARY | 2024-12-31 14:22 | XMS_ITS | Encounter Summary ---
Author Organization [facility] Address [address] [place] [address] Care Team Providers Care Residential Sales Manager Name Role Phone Lorenzo Austin MD Primary Care Provider [phone] Encounter Details Date Type Department Care Team (Latest Contact Info) Description 09/17/2003 [facility] [address] 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
--- OUTSIDE RECORDS SUMMARY | 2024-12-31 14:22 | XMS_ITS | Encounter Summary ---
Author Organization [facility] Address [address] [place] [address] Care Team Providers Care Foam Molder Name Role Phone Lorenzo Austin MD Primary Care Provider [phone] Encounter Details Date Type Department Care Team (Latest Contact Info) Description 04/01/2002 Outpatient Historical [facility] [phone] Salvador Cheek MD [address] [place] [id number] Lateral epicondylitis (Primary Dx); HYPERLIPIDEMIA NEC/NOS; HYPERTENSION NOS Social History Tobacco Use Types Packs/Day Years Used Date Smoking Tobacco: Never Assessed Sex and Gender Information Value Date Recorded Sex Assigned at Not on file 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
--- OUTSIDE RECORDS SUMMARY | 2024-12-31 14:22 | XMS_ITS | Encounter Summary ---
Author Organization [facility] Address [address] [place] [address] Care Team Providers Care Clinical Counselor Name Role Phone Lorenzo Austin MD Primary Care Provider [phone] Encounter Details Date Type Department Care Team (Latest Contact Info) Description 04/09/2024 Results Follow-Up [facility] [address] [place] [address] Paul Bentley MD [address] [place] [address] BASIC METABOLIC PANEL, LIPID PANEL, HEMOGLOBIN A1C Social History Tobacco Use Types Packs/Day Years Used Date Smoking Tobacco: Never Smokeless Tobacco: Never Alcohol Use Standard Drinks/Week Comments No 0 (1 standard drink = 0.6 oz pur e alcohol) Sex and Gender Information Value Date Recorded Sex Assigned at Male 01/02/2023 6:22 PM CDT Legal Sex Male 3:50 PM LEADLIGHTER Gender Identity Male 01/02/2023 6:22 PM CDT Sexual Orientation Not on file documented as of this encounter Plan of Treatment Upcoming Encounters Date Type Department Care Team (Late st Contact Info) Description 01/13/2025 10:30 AM CDT Office Visit [facility] Kw[address] [place] [phone] Lorenzo Austin MD [address] [place] [address] 03/03/2025 9:20 AM LEADLIGHTER Office Visit [facility] [address] [place] [address] Halie William PA [address] [place] [address] documented as of this encounter Visit Diagnoses Not on filedocumented in this encounter Care Teams Clinical Counselor Relationship Specialty Start Date End Date Lorenzo Austin MD [address] [place] [address] PCP - General Family Practice 06/12/20 documented as of this encounter
[2024-12-31 15:25] VITALS: BP 137/85; PULSE 72; RESP 18; TEMP 36.7; O2SAT 96
== END 2024-12-31 15:28 | disposition home or self-care (01) ==
PROVIDERS: Emergency Provider Physician Assistant; PCP Family Medicine
DX: S09.8XXA Other specified injuries of head, initial encounter (principal); S01.01XA Laceration without foreign body of scalp, initial encounter; S39.92XA Unspecified injury of lower back, initial encounter; V89.9XXA Person injured in unspecified vehicle accident, initial encounter
CPT/HCPCS: 12001; 99281